=== PATIENT | male | born 1990 | race Hispanic/Latino ===

== ENCOUNTER 2017-07-24 15:54 | Emergency (ER) | payer SELFPAY ==
[2017-07-24] MEDS ORDERED: Fluorescein Opthalmic Strip ONE (16:02)
[2017-07-24] MEDS ORDERED: Gentamicin Ophth Ointment 0.3% 3.5 gm Tube ONE (16:24)
[2017-07-24] MEDS ORDERED: Ibuprofen 800 MG TAB ONE (16:30)
== END 2017-07-24 16:34 | disposition home or self-care (01) ==
LOC: BURERS 15:54
DX: S05.01XA Injury of conjunctiva and corneal abrasion without foreign body, right eye, initial encounter (principal); X58.XXXA Exposure to other specified factors, initial encounter
CPT/HCPCS: 99283